=== PATIENT | female | born 1995 | race Caucasian/White ===

== ENCOUNTER 2021-01-17 10:41 | Inpatient (IN) | payer OTHER, SELFPAY ==
[~2021-01-17] VITALS: Ht 160 cm; Wt 49.9 kg
[2021-01-17] MEDS ORDERED: NACL 0.9% 1,000 ML IV ONE (10:45)
[2021-01-17] MEDS ORDERED: KETOROLAC TROMETHAMINE 30 MG VIAL IVP ONE (10:45)
[2021-01-17 10:47] VITALS: BP_SYST 129
[2021-01-17 11:02] LABS: HEMATOCRIT 44.2 % (36-48); HEMOGLOBIN 15.2 g/dL (12.0-16.0); MEAN CORPUSCULAR HEMOGLOBIN 31 pg (27-31); MEAN CORPUSCULAR HGB CONC 34 % (32-36); MEAN CORPUSCULAR VOLUME 90 fL (79.0-98.0); PLATELET COUNT (AUTO) 295 K/uL (130-430); RED BLOOD CELL COUNT(AUTO) 4.91 MIL/uL (4.2-6.2)
[2021-01-17 11:11] LABS: WHITE BLOOD COUNT (AUTO) 30.8 K/uL (4.8-10.8)
[2021-01-17 11:15] LABS: CALCIUM 9.7 mg/dL (8.4-11.0); CREATININE 1.12 mg/dL (0.55-1.30); POTASSIUM 3.8 mmol/L (3.5-5.1)
[2021-01-17 11:21] LABS: ALBUMIN 3.7 g/dL (3.4-4.8); TOTAL BILIRUBIN 1.5 mg/dL (0.0-1.0)
[2021-01-17 11:31] LABS: BILIRUBIN,URINE NEGATIVE (NEGATIVE); BLOOD, URINE 1+ (NEGATIVE); CLARITY/URINE SL CLOUDY (CLEAR); COLOR,URINE YELLOW (YELLOW); GLUCOSE,URINE 2+ (NEGATIVE); KETONES,URINE NEGATIVE (NEGATIVE); LEUKOCYTE ESTERASE ,URINE NEGATIVE (NEGATIVE); NITRITE, URINE NEGATIVE (NEGATIVE); PH,URINE 6.5 (5.0-8.0); PROTEIN URINE 1+ (NEGATIVE)
[2021-01-17 11:42] LABS: BACTERIA,URINE MODERATE /HPF (None Seen); MUCUS,URINE 1+ /LPF (None Seen); RBC,URINE 20-50 /HPF (0-3)
[2021-01-17 11:47] LABS: BAND % (MANUAL) 24 % (0-6); BASOPHILS % (MANUAL) 0 % (0-2); EOSINOPHILS % (MANUAL) 0 % (0-7); LYMPHOCYTES % (MANUAL) 1 % (20-46); METAMYELOCYTES % 1 % (0-0); MONOCYTES % (MANUAL) 1 % (0-11)
[2021-01-17 11:57] LABS: BARBITURATE, URINE NEGATIVE (NEG <=200); BENZODIAZEPINE, URINE NEGATIVE (NEG <=150); CANNABINOID, URINE POSITIVE (NEG <=50); COCAINE, URINE NEGATIVE (NEG <=150); METHAMPHETAMINES SCREEN,URINE POSITIVE (NEG <=500); OPIATE, URINE NEGATIVE (NEG <=100); PHENCYCLIDINE SCREEN,URINE NEGATIVE (NEG <=25); UR TRICYCLIC ANTIDEPRESSANTS NEGATIVE (NEG <=300); URINE AMPHETAMINE POSITIVE (NEG <=500); URINE METHADONE NEGATIVE (NEG <=200); URINE OXYCODONE SCREEN NEGATIVE (NEG <=100); URINE PROPOXYPHENE SCREEN NEGATIVE (NEG <=300)
[2021-01-17] MEDS ORDERED: metroNIDAZOLE 500 mg/NS 100 ML IV ONE (12:30)
[2021-01-17] MEDS ORDERED: LEVOFLOXACIN IN DEXTROSE 5 % 100 ML IV ONE (12:30)
[2021-01-17] MEDS ORDERED: ONDANSETRON HCL 4 MG/2 ML VIAL IVP PRN (13:15)
[2021-01-17] MEDS ORDERED: POTASSIUM CHLORIDE 20 MEQ TAB.PRT.SR PO PRN (13:15)
[2021-01-17] MEDS ORDERED: NALOXONE HCL 0.4 MG/ML AMP (NARCAN) IVP PRN ×2 (13:15)
[2021-01-17] MEDS ORDERED: ACETAMINOPHEN 325 MG TABLET PO PRN (13:15)
[2021-01-17] MEDS ORDERED: ZOLPIDEM TARTRATE 5 MG TABLET PO PRN (13:15)
[2021-01-17] MEDS ORDERED: DOCUSATE SODIUM 100 MG CAPSULE PO PRN (13:15)
[2021-01-17] MEDS ORDERED: MORPHINE 2 MG/ML INJ. SYRINGE IVP PRN (13:15)
[2021-01-17] MEDS ORDERED: LORazepam 2 MG/ML VIAL IVP PRN (13:15)
[2021-01-17] MEDS ORDERED: MAGNESIUM SULFATE 50 ML IV PRN (13:15)
[2021-01-17] MEDS ORDERED: MUPIROCIN 2% TOPICAL OINTMENT 22 GM NS PRN (13:15)
[2021-01-17 13:23] VITALS: BP_SYST 118
[2021-01-17] MEDS: NACL 0.9% 1,000 ML IV SCH (13:53)
[2021-01-17] MEDS ORDERED: PIPERACILLIN/TAZO 4.5GM/DEX-IS 100 ML IV ONE (16:00)
[2021-01-17 16:12] VITALS: BP_SYST 115
[2021-01-17] MEDS ORDERED: cefOXitin SODIUM 2 GM in D5W 100 ML IV SCH (18:00)
[2021-01-17 20:00] VITALS: BP_SYST 109
[2021-01-17 20:11] LABS: HEMATOCRIT 38.8 % (36-48); HEMOGLOBIN 13.4 g/dL (12.0-16.0); LYMPHOCYTES # (AUTO) 0.6 K/uL (1.0-5.5); LYMPHOCYTES % (AUTO) 2.2 % (20.5-51.5); MEAN CORPUSCULAR HEMOGLOBIN 31 pg (27-31); MEAN CORPUSCULAR HGB CONC 34 % (32-36); MEAN CORPUSCULAR VOLUME 90 fL (79.0-98.0); MONOCYTES # (AUTO) 0.3 K/uL (0.0-1.0); MONOCYTES % (AUTO) 1.2 % (1.7-9.3); NEUTROPHILS % (AUTO) 96.6 % (40.0-70.0); PLATELET COUNT (AUTO) 255 K/uL (130-430); RED CELL DISTRIBUTION WIDTH 12.9 % (9.0-15.0); WHITE BLOOD COUNT (AUTO) 27.9 K/uL (4.8-10.8)
[2021-01-17] MEDS ORDERED: DOXYCYCLINE HYCLATE 100 MG CAPSULE PO SCH (21:00)
[2021-01-17] MEDS: DOXYCYCLINE HYCLATE 100 MG in D5W 100 ML IV SCH (21:34)
[2021-01-17] MEDS: MORPHINE 2 MG/ML INJ. SYRINGE IVP PRN (22:11)
[2021-01-17] MEDS: PIPERACILLIN/TAZO 4.5GM/DEX-IS 100 ML IV SCH (22:53)
[2021-01-18] VITALS (7 sets, daily range): BP systolic 94–114
[2021-01-18] MEDS: NACL 0.9% 1,000 ML IV SCH ×4 (01:04→23:57)
[2021-01-18] MEDS: PIPERACILLIN/TAZO 4.5GM/DEX-IS 100 ML IV SCH ×3 (06:08→21:33)
[2021-01-18 06:42] LABS: BASOPHILS % (AUTO) 0.1 % (0.0-2.0); EOSINOPHILS # (AUTO) 0.1 K/uL (0.0-0.4); EOSINOPHILS % (AUTO) 0.3 % (0.0-4.0); HEMATOCRIT 35.9 % (36-48); HEMOGLOBIN 12.2 g/dL (12.0-16.0); LYMPHOCYTES # (AUTO) 1.1 K/uL (1.0-5.5); LYMPHOCYTES % (AUTO) 4.4 % (20.5-51.5); MEAN CORPUSCULAR HEMOGLOBIN 31 pg (27-31); MEAN CORPUSCULAR HGB CONC 34 % (32-36); MEAN CORPUSCULAR VOLUME 91 fL (79.0-98.0); MONOCYTES # (AUTO) 0.5 K/uL (0.0-1.0); MONOCYTES % (AUTO) 1.8 % (1.7-9.3); NEUTROPHILS # (AUTO) 24.2 K/uL (1.8-7.7); PLATELET COUNT (AUTO) 241 K/uL (130-430); RED BLOOD CELL COUNT(AUTO) 3.96 MIL/uL (4.2-6.2); RED CELL DISTRIBUTION WIDTH 12.9 % (9.0-15.0); WHITE BLOOD COUNT (AUTO) 25.9 K/uL (4.8-10.8)
[2021-01-18 08:11] LABS: NEUTROPHILS % (AUTO) 93.4 % (40.0-70.0)
[2021-01-18 08:14] LABS: CALCIUM 8.3 mg/dL (8.4-11.0); CREATININE 0.91 mg/dL (0.55-1.30); POTASSIUM 4.2 mmol/L (3.5-5.1)
[2021-01-18] MEDS: DOXYCYCLINE HYCLATE 100 MG in D5W 100 ML IV SCH ×2 (09:20→21:33)
[2021-01-18] MEDS: MORPHINE 2 MG/ML INJ. SYRINGE IVP PRN ×2 (14:18→22:43)
[2021-01-19] MEDS: PIPERACILLIN/TAZO 4.5GM/DEX-IS 100 ML IV SCH ×3 (06:08→22:40)
[2021-01-19 06:19] LABS: BASOPHILS % (AUTO) 0.1 % (0.0-2.0); EOSINOPHILS # (AUTO) 0.1 K/uL (0.0-0.4); EOSINOPHILS % (AUTO) 0.4 % (0.0-4.0); HEMATOCRIT 32.7 % (36-48); HEMOGLOBIN 11.2 g/dL (12.0-16.0); LYMPHOCYTES # (AUTO) 1.1 K/uL (1.0-5.5); LYMPHOCYTES % (AUTO) 6.7 % (20.5-51.5); MEAN CORPUSCULAR HEMOGLOBIN 31 pg (27-31); MEAN CORPUSCULAR HGB CONC 34 % (32-36); MEAN CORPUSCULAR VOLUME 90 fL (79.0-98.0); MONOCYTES # (AUTO) 0.3 K/uL (0.0-1.0); MONOCYTES % (AUTO) 2.1 % (1.7-9.3); NEUTROPHILS # (AUTO) 14.8 K/uL (1.8-7.7); NEUTROPHILS % (AUTO) 90.7 % (40.0-70.0); PLATELET COUNT (AUTO) 246 K/uL (130-430); RED BLOOD CELL COUNT(AUTO) 3.65 MIL/uL (4.2-6.2); RED CELL DISTRIBUTION WIDTH 12.8 % (9.0-15.0); WHITE BLOOD COUNT (AUTO) 16.3 K/uL (4.8-10.8)
[2021-01-19 07:04] LABS: CALCIUM 7.9 mg/dL (8.4-11.0); CREATININE 0.67 mg/dL (0.55-1.30); POTASSIUM 3.7 mmol/L (3.5-5.1)
[2021-01-19 07:45] VITALS: BP_SYST 115
[2021-01-19] MEDS: NACL 0.9% 1,000 ML IV SCH ×2 (08:48→18:15)
[2021-01-19] MEDS: DOXYCYCLINE HYCLATE 100 MG in D5W 100 ML IV SCH ×2 (08:48→21:46)
[2021-01-19] MEDS: MORPHINE 2 MG/ML INJ. SYRINGE IVP PRN (09:48)
[2021-01-19 11:25] VITALS: BP_SYST 93
[2021-01-19 15:30] VITALS: BP_SYST 110
[2021-01-19 20:07] VITALS: BP_SYST 111
[2021-01-20] MEDS: NACL 0.9% 1,000 ML IV SCH ×2 (00:28→10:37)
[2021-01-20 00:33] VITALS: BP_SYST 112
[2021-01-20] MEDS: MORPHINE 2 MG/ML INJ. SYRINGE IVP PRN ×2 (00:33→05:48)
[2021-01-20] MEDS: PIPERACILLIN/TAZO 4.5GM/DEX-IS 100 ML IV SCH (05:47)
[2021-01-20 06:27] LABS: BASOPHILS % (AUTO) 0.3 % (0.0-2.0); EOSINOPHILS # (AUTO) 0.1 K/uL (0.0-0.4); EOSINOPHILS % (AUTO) 1.3 % (0.0-4.0); HEMATOCRIT 31.7 % (36-48); HEMOGLOBIN 10.8 g/dL (12.0-16.0); LYMPHOCYTES # (AUTO) 1.8 K/uL (1.0-5.5); LYMPHOCYTES % (AUTO) 18.5 % (20.5-51.5); MEAN CORPUSCULAR HEMOGLOBIN 31 pg (27-31); MEAN CORPUSCULAR HGB CONC 34 % (32-36); MEAN CORPUSCULAR VOLUME 90 fL (79.0-98.0); MONOCYTES # (AUTO) 0.5 K/uL (0.0-1.0); MONOCYTES % (AUTO) 4.6 % (1.7-9.3); NEUTROPHILS # (AUTO) 7.5 K/uL (1.8-7.7); NEUTROPHILS % (AUTO) 75.3 % (40.0-70.0); PLATELET COUNT (AUTO) 259 K/uL (130-430); RED BLOOD CELL COUNT(AUTO) 3.53 MIL/uL (4.2-6.2); RED CELL DISTRIBUTION WIDTH 12.8 % (9.0-15.0); WHITE BLOOD COUNT (AUTO) 9.9 K/uL (4.8-10.8)
[2021-01-20 07:11] LABS: CALCIUM 8.1 mg/dL (8.4-11.0); CREATININE 0.6 mg/dL (0.55-1.30); POTASSIUM 3.4 mmol/L (3.5-5.1)
[2021-01-20 07:50] VITALS: BP_SYST 115
[2021-01-20] MEDS: DOXYCYCLINE HYCLATE 100 MG in D5W 100 ML IV SCH (08:12)
[2021-01-20] MEDS ORDERED: METR500T PO (11:38)
[2021-01-20] MEDS ORDERED: ACET-73 PO (11:38)
[2021-01-20] MEDS ORDERED: DOXY100T2 PO (11:38)
[2021-01-20] MEDS ORDERED: CIPR500T5 PO (11:38)
[2021-01-20 12:02] VITALS: BP_SYST 116
[2021-01-20 12:11] VITALS: BP_SYST 116
== END 2021-01-20 15:00 | disposition home or self-care (01) | DRG 720 ==
LOC: SED 10:41 → SMU 12:42
PROVIDERS: ADMIT General Practice; ATTEND General Practice
DX: A41.9 Sepsis, unspecified organism (principal); E87.2 Acidosis; F12.10 Cannabis abuse, uncomplicated; F15.10 Other stimulant abuse, uncomplicated; N39.0 Urinary tract infection, site not specified; N73.9 Female pelvic inflammatory disease, unspecified; Z20.822 Contact with and (suspected) exposure to COVID-19; N76.0 Acute vaginitis; E87.6 Hypokalemia; Z72.0 Tobacco use
CPT/HCPCS: 36415; 76376; 80048; 80053; 80307; 81000; 83036; 83605; 83735; 85007; 85025; 85027; 87040-TC; 87086; 87210-TC; 87491; 87591; 96365; 96375; 99285; J0694; J1885; J1956; J2270; J2543; J3475; J3490; J7030; J7050; J7060

== ENCOUNTER 2022-02-04 22:42 | Emergency (ER) | payer OTHER ==
[~2022-02-04] VITALS: Ht 160 cm; Wt 47.6 kg
[~2022-02-04 22:42] MED LIST: ACET-73 PO; CIPR500T5 PO; DOXY100T2 PO; METR500T PO
[2022-02-04 23:00] VITALS: BP_SYST 100
[2022-02-05] MEDS ORDERED: ACETAMINOPHEN 500 MG TABLET PO ONE (00:15)
[2022-02-05] MEDS ORDERED: NACL 0.9% 1,000 ML IV ONE ×2 (00:15→01:45)
[2022-02-05 00:31] LABS: BILIRUBIN,URINE NEGATIVE (NEGATIVE); BLOOD, URINE NEGATIVE (NEGATIVE); CLARITY/URINE CLEAR (CLEAR); COLOR,URINE YELLOW (YELLOW); GLUCOSE,URINE NEGATIVE (NEGATIVE); KETONES,URINE NEGATIVE (NEGATIVE); LEUKOCYTE ESTERASE ,URINE 1+ (NEGATIVE); NITRITE, URINE NEGATIVE (NEGATIVE); PH,URINE 7.5 (5.0-8.0); PROTEIN URINE NEGATIVE (NEGATIVE); UROBILINOGEN,URINE 0.2 (0.2-1.0)
[2022-02-05 00:44] LABS: BARBITURATE, URINE NEGATIVE (NEG <=200); BENZODIAZEPINE, URINE NEGATIVE (NEG <=150); CANNABINOID, URINE POSITIVE (NEG <=50); COCAINE, URINE NEGATIVE (NEG <=150); METHAMPHETAMINES SCREEN,URINE POSITIVE (NEG <=500); URINE AMPHETAMINE POSITIVE (NEG <=500); URINE METHADONE NEGATIVE (NEG <=200)
[2022-02-05 00:45] LABS: OPIATE, URINE NEGATIVE (NEG <=100); PHENCYCLIDINE SCREEN,URINE NEGATIVE (NEG <=25); UR TRICYCLIC ANTIDEPRESSANTS NEGATIVE (NEG <=300); URINE OXYCODONE SCREEN NEGATIVE (NEG <=100); URINE PROPOXYPHENE SCREEN NEGATIVE (NEG <=300)
[2022-02-05 00:51] LABS: BACTERIA,URINE FEW /HPF (None Seen); RBC,URINE 0-3 /HPF (0-3)
[2022-02-05 01:01] LABS: BASOPHILS # (AUTO) 0.1 K/uL (0.0-0.2); BASOPHILS % (AUTO) 0.5 % (0.0-2.0); EOSINOPHILS % (AUTO) 0.2 % (0.0-4.0); HEMATOCRIT 38.8 % (36-48); HEMOGLOBIN 13.3 g/dL (12.0-16.0); LYMPHOCYTES # (AUTO) 0.6 K/uL (1.0-5.5); LYMPHOCYTES % (AUTO) 2.9 % (20.5-51.5); MEAN CORPUSCULAR HEMOGLOBIN 31 pg (27-31); MEAN CORPUSCULAR HGB CONC 34 % (32-36); MEAN CORPUSCULAR VOLUME 89 fL (79.0-98.0); MONOCYTES # (AUTO) 0.9 K/uL (0.0-1.0); MONOCYTES % (AUTO) 4.8 % (1.7-9.3); NEUTROPHILS # (AUTO) 17.7 K/uL (1.8-7.7); NEUTROPHILS % (AUTO) 91.6 % (40.0-70.0); PLATELET COUNT (AUTO) 245 K/uL (130-430); RED BLOOD CELL COUNT(AUTO) 4.37 MIL/uL (4.2-6.2); WHITE BLOOD COUNT (AUTO) 19.3 K/uL (4.8-10.8)
[2022-02-05 01:12] LABS: ANION GAP 8 (5-15); CALCIUM 8.6 mg/dL (8.4-11.0); CHLORIDE 99 mmol/L (98-107); CREATININE 0.76 mg/dL (0.55-1.30); GLUCOSE 134 mg/dL (70-99); POTASSIUM 3.4 mmol/L (3.5-5.1); SODIUM SERUM 132 mmol/L (136-145); UREA NITROGEN, BLOOD 16 mg/dL (8-21)
[2022-02-05 01:27] LABS: ALANINE AMINOTRANSFERASE 8 U/L (12-78); ALBUMIN 3.7 g/dL (3.4-4.8); ASPARTATE AMINOTRANSFERASE 11 U/L (10-37); HCG,QUANTITATIVE 0 mIU/ML (0-6); TOTAL BILIRUBIN 1.1 mg/dL (0.0-1.0)
[2022-02-05 01:31] LABS: GFR AFRICAN AMERICAN 120 mL/min (>90)
[2022-02-05 01:37] LABS: STREPTOCOCCUS A SCREEN (RAPID) NEGATIVE (NEGATIVE)
[2022-02-05 01:39] LABS: ALCOHOL, BLOOD < 3 mg/dL (<10)
[2022-02-05] MEDS ORDERED: PIPERACILLIN/TAZO 3.375 GM in NS 50 ML IV ONE (01:45)
[2022-02-05] MEDS ORDERED: PIPERACILLIN/TAZOBACTAM 3.375 GM/VIAL (ZOSYN) IV ONE (01:59)
[2022-02-05] MEDS ORDERED: MORPHINE 4 MG INJ. 4 MG/ML VIAL IVP ONE (02:45)
[2022-02-05] MEDS ORDERED: VANCOMYCIN HCL 1,000 MG in NS 250 ML IV ONE (02:45)
[2022-02-05] MEDS ORDERED: VANCOMYCIN HCL 1000 MG/VIAL IV ONE (03:45)
[2022-02-05] MEDS ORDERED: cefTRIAXone 0.75 GM in LIDOCAINE 1%, 20 ML MDV 2.1 ML IM ONE (05:00)
[2022-02-05] MEDS ORDERED: AZITHROMYCIN 250 MG TABLET PO ONE (05:00)
[2022-02-05] MEDS ORDERED: METR-154 PO (05:19)
[2022-02-05] MEDS ORDERED: DOXY100T2 PO (05:19)
[2022-02-05] MEDS ORDERED: IBUP-1969 PO (05:19)
[2022-02-05 05:40] VITALS: BP_SYST 97
== END 2022-02-05 05:40 | disposition home or self-care (01) ==
LOC: SED 22:42
DX: N72 Inflammatory disease of cervix uteri (principal); R51.9 Headache, unspecified; Z20.822 Contact with and (suspected) exposure to COVID-19
CPT/HCPCS: 36415; 72128; 72132; 74177; 76376; 80053; 80307; 81000; 82550; 83605; 84702; 85025; 86308; 86403; 87040; 87081; 87086; 87210; 87426; 87804 ×2; 93005; 96361; 96365; 96366; 96367; 96372; 96375; 99285; G0482; J0696; J2001; J2270; J2543; J3370; J7030; Q0144; Q9967